=== PATIENT | male | born 1995 | race Caucasian/White ===

== ENCOUNTER → 2022-12-13 | Outpatient (CLI) | payer BC, MEDICAID, SELFPAY ==
--- NOTE | 2022-12-13 10:30 | RAD_ITS ---
CLINICAL HISTORY: Male, 27 years old. Chronic left hip pain. PROCEDURE: ARTHROGRAM - LEFT HIP CONSENT: The procedure as well as the benefits and possible complications including infection and bleeding were explained to the patient. Informed consent was obtained. FLUOROSCOPY TIME (if supplied): (1 minute and 28 seconds) minutes/seconds. 21.31 mGy Injection Information: 10 cc of dilute MRI contrast. Number of images obtained: One TECHNIQUE: (All elements of maximal sterile barrier technique followed, including US elements as applicable) The patient was in the supine position. The overlying skin was prepped and draped in usual sterile fashion. Following local anesthetic application and under direct fluoroscopic guidance, a 22-gauge spinal needle was placed into the left hip joint. 2 cc of Isovue-300 was injected for confirmation. Following this, 10 cc of dilute MRI contrast was injected. The patient tolerated the procedure well. RAD/Arthrogram Hip w/ MRI IMPRESSION: Successful left hip arthrogram for MRI examination. Electronically Signed: Venu Montano MD at 15:07 EDT ,
--- NOTE | 2022-12-13 10:44 | MRI_ITS ---
STUDY: MRI ARTHROGRAM OF THE LEFT HIP REASON FOR EXAM: Male, 27 years old. Pain. TECHNIQUE: 10 mL of dilute Gadolinium contrast was injected into the left hip joint. MRI was obtained in all 3 orthogonal planes. COMPARISON: None. FINDINGS: There is a tear of the left anterior-superior acetabular labrum (sagittal T1/T2 series 5 and 6, image 14). Otherwise, normal left hip joint without articular joint space narrowing. Normal acetabulum. Normal femoral head. Normal femoral neck and intratrochanteric region. There is no demonstrated fracture. Normal gluteus minimus, medius and iliopsoas tendons and distal insertions. There is no trochanteric, iliopsoas or iliopectineal bursitis. Normal superior and inferior pubic rami. Normal pubic symphysis. Normal ischial tuberosity. Normal origin of the hamstring tendons. Normal visualized iliac wing, sacroiliac joint, and sacral ala. Normal visualized soft tissue structures of the pelvis. MRI/Lower Ext/Jt Only/W Contrast IMPRESSION: Tear of the left anterior-superior acetabular labrum. Electronically Signed: Andrew Lopez MD at 13:30 EDT ,
[2022-12-13] MEDS: Lidocaine 2% (5ml sdv) 5 ML VIAL.MPF INFILT (11:05)
[2022-12-13] MEDS: Gadoterate Meglumine Diluted 10 ML, Iopamidol 5 ML, Lidocaine 1% (20 ml mdv) 5 ML, Epin... INTRAARTIC (11:10)
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
[2022-12-13] MEDS: Iopamidol 10 ML in Syringe 1 EACH 600 ML INTRAARTIC (11:49)
== END | disposition home or self-care (01) ==
LOC: RAD 10:16
PROVIDERS: PCP Nurse Practitioner Family; Referring Provider Orthopaedic Surgery Sports Medicine; Visit Provider Orthopaedic Surgery Sports Medicine
DX: Z01.818 Encounter for other preprocedural examination (principal); M25.552 Pain in left hip; G89.29 Other chronic pain
CPT/HCPCS: 27093; 70030; 73722; 77002; Q9967